=== PATIENT | male | born 1980 | race Caucasian/White ===

== ENCOUNTER 2017-07-19 19:19 | Emergency (ER) | payer OTHER ==
[~2017-07-19] VITALS: Ht 172.7 cm; Wt 77.1 kg
[~2017-07-19 19:19] MED LIST: ALBU8HFA4 PO; LEVO50TA PO
--- NOTE | 2017-07-19 20:10 | NUR ---
Pt states he fell forward off 12-13 foot fall from fence with outstretched left arm, struck left hand and wrist on ground. Pt c/o left hand and wrist pain and numbness, 10/10. PMS intact, but ROM limited by pain. Cap refill < 2 sec. Also c/o some right shoulder pain, ROM okay. Pt denies CP, SOB, dizziness, n/v, no other complaints, no distress noted.
[2017-07-19] MEDS ORDERED: IBUPROFEN 800 MG TABLET PO ONE (20:15)
[2017-07-19] MEDS ORDERED: IBUPROFEN 800 MG TABLET ONE (20:52)
--- NOTE | 2017-07-19 21:40 | NUR ---
Gave pt radiology CD, RX and d/c instructions, verbalized understanding.
== END 2017-07-19 21:54 | disposition home or self-care (01) ==
LOC: ER 19:20
DX: S62.102A Fracture of unspecified carpal bone, left wrist, initial encounter for closed fracture (principal); I10 Essential (primary) hypertension; J45.909 Unspecified asthma, uncomplicated; F32.9 Major depressive disorder, single episode, unspecified; E03.9 Hypothyroidism, unspecified; G62.9 Polyneuropathy, unspecified; W01.0XXA Fall on same level from slipping, tripping and stumbling without subsequent striking against object, initial encounter; Y93.39 Activity, other involving climbing, rappelling and jumping off; Y92.89 Other specified places as the place of occurrence of the external cause; Y99.8 Other external cause status
CPT/HCPCS: 73090; 73130; A4663